=== PATIENT | male | born 1995 ===

== ENCOUNTER 2017-01-17 00:47 | Emergency (ER) | payer SELFPAY ==
[2017-01-17 00:48] VITALS: BMI 21.9
[2017-01-17 01:07] VITALS: BP 141/85; PULSE 98; RESP 18; TEMP 98.4; O2SAT 100
--- NOTE | 2017-01-17 01:28 | ED PDOC ---
HPI: Chest Pain Time Seen by Provider: 01/17/17 00:50 Chief Complaint (Nursing): Chest Pain Chief Complaint (Provider): Chest pain History Per: Patient History/Exam Limitations: no limitations Additional Complaint(s): Patient is a 21 year old male presenting to the emergency department for intermittent left sided chest pain ongoing for two months and associated with movement and food. Of note, patient has been to [facility] for the same symptoms and was referred to outpatient cardiology but failed to follow up. Denies fever, cough, chills, shortness of breath, drug or alcohol use, or allergies. Of note, patient has gastritis but is non-compliant with medication. PCP: none provided. Past Medical History Reviewed: Historical Data, Nursing Documentation, Vital Signs Vital Signs: Last Vital Signs Temp 98.4 F 01/17/17 00:59 Pulse 98 H 01/17/17 00:59 Resp 18 01/17/17 00:59 BP 141/85 01/17/17 00:59 Pulse Ox 100 01/17/17 03:19 - Medical History PMH: Gastritis Denies: Anxiety, Bipolar Disorder, Depression, Paranoia, Post Traumatic Stress Disorder, Schizophrenia - Surgical History Surgical History: No Surg Hx - Family History Other Family History: CAD (mother) - Social History Current smoker - smoking cessation education provided: Yes SMOKER/PACKS PER DAY:: 1 Ex-Smoker (has not smoked in the last 12 months): No Alcohol: None Drugs: Denies - Home Medications Home Medications: Ambulatory Orders Medication Instructions Recorded Lansoprazole [Prevacid] 30 mg PO DAILY #14 ecc 09/25/14 Naproxen 250 mg PO BID PRN #10 tab 09/25/14 Cyclobenzaprine [Flexeril] 10 mg PO Q8 PRN #15 tab 12/12/15 Naproxen [Naprosyn] 500 mg PO BID #20 tab 12/12/15 - Allergies Allergies/Adverse Reactions: Allergies Allergy/AdvReac Type Severity Reaction Status Date / Time No Known Allergies Allergy Verified 09/25/14 09:56 Review of Systems ROS Statement: Except As Marked, All Systems Reviewed And Found Negative Constitutional: Negative for: Fever, Chills Cardiovascular: Positive for: Chest Pain (left sided, intermittent, x2 months) Respiratory: Negative for: Cough, Shortness of Breath Physical Exam - Reviewed Nursing Documentation Reviewed: Yes Vital Signs Reviewed: Yes - Physical Exam Appears: Positive for: Well, Non-toxic, No Acute Distress Head Exam: Positive for: ATRAUMATIC, NORMAL INSPECTION, NORMOCEPHALIC Skin: Positive for: Normal Color, Warm, DRY Eye Exam: Positive for: EOMI, Normal appearance, PERRL Neck: Positive for: Normal, Painless ROM, Supple Cardiovascular/Chest: Positive for: Regular Rate, Rhythm. Negative for: Murmur Respiratory: Positive for: Normal Breath Sounds. Negative for: Accessory Muscle Use, Respiratory Distress Gastrointestinal/Abdominal: Positive for: Normal Exam, Soft Back: Positive for: Normal Inspection Extremity: Positive for: Normal ROM. Negative for: Pedal Edema Neurologic/Psych: Positive for: Alert, Oriented - Laboratory Results Result Diagrams: 01/17/17 01:15 01/17/17 01:15 - ECG ECG Rhythm: Positive for: Sinus Rhythm (at 98 bpm, no ST elev) O2 Sat by Pulse Oximetry: 100 (RA) Pulse Ox Interpretation: Normal Medical Decision Making Medical Decision Making: Time: :17 Initial Plan: -Labs -Chest X-Ray -Pepcid 20 mg IVP -Toradol 30 mg IV -Reevaluation differential CAD vs gastritis 03:15: Clinical impression: atypical Chest pain. Patient reports feeling better. Labs and X-ray were reviewed with normal findings. Patient is referred to outpatient cardiology. pt without cardiac risk factors, and workup is negative pt stable for dc and outpt follow up Scribe Attestation: Documented by Ronit Echeverria, acting as a scribe for Gavin Plasencia MD Provider Scribe Attestation: All medical record entries made by the Scribe were at my direction and personally dictated by me. I have reviewed the chart and agree that the record accurately reflects my personal performance of the history, physical exam, medical decision making, and the department course for this patient. I have also personally directed, reviewed, and agree with the discharge instructions and disposition. Disposition - Clinical Impression Clinical Impression: Chest wall pain - Patient ED Disposition Is Patient to be Admitted: No Counseled Patient/Family Regarding: Studies Performed, Diagnosis, Need For Followup - Disposition Referrals: [facility] [Outside] [facility] [Outside] Andrew Lebron MD [Staff Provider] - Disposition: Routine/Home Disposition Time: 02:00 Condition: IMPROVED Additional Instructions: follow up with your primary doctor in 1-2 days/referral to cardiology for ongoing chest pain return to the ED with any worsening or concerning symptoms Instructions: Chest Wall Pain (ED) Forms: [employer] (Turkmen)
[2017-01-17 01:33] LABS: BASO # 0.1 K/uL (0.0-0.2); BASO % 0.9 % (0.0-2.0); EOS # 0.3 K/uL (0.0-0.7); EOS % 4.5 % (0.0-4.0); HEMOGLOBIN 14.6 g/dL (12.0-18.0); LYMPH # 2.9 K/uL (1.0-4.3); LYMPH % 38.8 % (20.0-40.0); MEAN CELL VOLUME 86.9 fl (80.0-94.0); MEAN CORPUSCULAR HEMOGLOBIN 29.7 pg (27.0-31.0); MEAN CORPUSCULAR HGB CONC 34.2 g/dL (33.0-37.0); MEAN PLATELET VOLUME 8.6 fl (7.2-11.7); MONO # 0.6 K/uL (0.0-0.8); MONO % 7.4 % (0.0-10.0); NEUT # 3.6 K/uL (1.8-7.0); NEUT % 48.4 % (50.0-75.0); NRBC % 0.1 % (0.0-0.0); RBC 4.92 Mil/uL (4.40-5.90); RED CELL DISTRIBUTION WIDTH 13.2 % (11.5-14.5); WHITE BLOOD COUNT 7.5 K/uL (4.8-10.8)
[2017-01-17 01:44] LABS: ALB/GLOB RATIO 1.3 (1.0-2.1); ALBUMIN 4.4 g/dL (3.5-5.0); ALT/SGPT 42 U/L (21-72); AST/SGOT 21 U/L (17-59); BLOOD UREA NITROGEN 17 mg/dl (9-20); CALCIUM 9.4 mg/dL (8.4-10.2); GFR AFRICAN-AMERICAN > 60; GFR NON-AFRICAN AMERICAN > 60; LIPASE 85 U/L (23-300)
== END 2017-01-17 03:44 | disposition home or self-care (01) ==
LOC: H.ER 00:47
DX: R07.89 Other chest pain (principal); R42 Dizziness and giddiness
CPT/HCPCS: 71020; 80053; 83690; 84484; 85025; 96374; 99282; J1885